=== PATIENT | female | born 1965 | race Caucasian/White ===

== ENCOUNTER 2017-05-30 16:29 | Emergency (ER) | payer MEDICARE, MEDICAID ==
[~2017-05-30] VITALS: Ht 157.5 cm; Wt 54.4 kg
[~2017-05-30 16:29] MED LIST: LITH300T15 PO; SER100 PO; WELSR150 PO; ZOLP10TA2 PO
[2017-05-30 16:30] VITALS: BP_SYST 121
[2017-05-30 16:50] LABS: BILIRUBIN,URINE 1+ (NEGATIVE); BLOOD, URINE 3+ (NEGATIVE); CLARITY/URINE CLOUDY (CLEAR); COLOR,URINE YELLOW (YELLOW); GLUCOSE,URINE NEGATIVE (NEGATIVE); KETONES,URINE TRACE (NEGATIVE); LEUKOCYTE ESTERASE ,URINE 2+ (NEGATIVE); NITRITE, URINE NEGATIVE (NEGATIVE); PH,URINE 5.5 (5.0-8.0); PROTEIN URINE 1+ (NEGATIVE); UROBILINOGEN,URINE 0.2 (0.2-1.0)
[2017-05-30 17:10] LABS: BACTERIA,URINE MODERATE /HPF (None Seen); RBC,URINE 20-50 /HPF (0-3); WBC,URINE >100 /HPF (0-3)
[2017-05-30 17:11] LABS: MUCUS,URINE 1+ /LPF (None Seen)
[2017-05-30] MEDS ORDERED: PHENAZOPYRIDINE HCL 100 MG TABLET PO ONE (17:30)
[2017-05-30] MEDS ORDERED: CIPROFLOXACIN HCL 500 MG TABLET PO ONE (17:30)
[2017-05-30] MEDS ORDERED: KETOROLAC TROMETHAMINE 60 MG/2 ML VIAL IM ONE (17:30)
== END 2017-05-30 18:19 | disposition home or self-care (01) ==
LOC: SED 16:29
DX: N39.0 Urinary tract infection, site not specified (principal); N76.0 Acute vaginitis
CPT/HCPCS: 81000; 87086; 96372; 99284; J1885; 87186-TC

== ENCOUNTER 2017-09-02 14:20 | Emergency (ER) | payer MEDICARE, MEDICAID ==
[~2017-09-02] VITALS: Ht 157.5 cm; Wt 55.8 kg
[2017-09-02] MEDS ORDERED: KETOROLAC TROMETHAMINE 60 MG/2 ML VIAL IM ONE (15:00)
[2017-09-02 15:56] VITALS: BP_SYST 113
== END 2017-09-02 15:56 | disposition home or self-care (01) ==
LOC: SED 14:20
DX: G56.03 Carpal tunnel syndrome, bilateral upper limbs (principal); F32.9 Major depressive disorder, single episode, unspecified; F41.9 Anxiety disorder, unspecified; Z87.891 Personal history of nicotine dependence
CPT/HCPCS: 29125; 96372; 99283; J1885

== ENCOUNTER 2018-01-17 11:26 | Emergency (ER) | payer MEDICARE, MEDICAID ==
[~2018-01-17] VITALS: Ht 157.5 cm; Wt 56.7 kg
[2018-01-17 11:33] VITALS: BP_SYST 99
[2018-01-17 12:08] LABS: BILIRUBIN,URINE NEGATIVE (NEGATIVE); BLOOD, URINE 1+ (NEGATIVE); CLARITY/URINE SL HAZY (CLEAR); COLOR,URINE YELLOW (YELLOW); GLUCOSE,URINE NEGATIVE (NEGATIVE); KETONES,URINE NEGATIVE (NEGATIVE); LEUKOCYTE ESTERASE ,URINE 1+ (NEGATIVE); NITRITE, URINE NEGATIVE (NEGATIVE); PH,URINE 5.5 (5.0-8.0); PROTEIN URINE NEGATIVE (NEGATIVE); UROBILINOGEN,URINE 0.2 (0.2-1.0)
[2018-01-17 12:25] LABS: RBC,URINE 0-3 /HPF (0-3)
[2018-01-17 12:26] LABS: BACTERIA,URINE FEW /HPF (None Seen); MUCUS,URINE None Seen /LPF (None Seen)
[2018-01-17 13:25] VITALS: BP_SYST 100
== END 2018-01-17 13:25 | disposition home or self-care (01) ==
LOC: SED 11:26
DX: N39.0 Urinary tract infection, site not specified (principal); F41.9 Anxiety disorder, unspecified
CPT/HCPCS: 81000-TC; 87086; 87186-TC; 87210-TC; 99284